=== PATIENT | male | born 1955 ===

== ENCOUNTER 2018-09-08 18:04 | Observation (INO) | payer BC ==
[2018-09-08] MEDS ORDERED: Acetaminophen TAB* 325 MG PO PRN (21:41)
[2018-09-08] MEDS ORDERED: Ondansetron INJ* 2 MG/ML VIAL IV PRN (21:41)
[2018-09-08] MEDS ORDERED: CMCS:Simvastatin TAB(NF) 10 MG TAB PO SCH (22:00)
[2018-09-08] MEDS ORDERED: Lisinopril TAB* 10 MG PO SCH (22:30)
[2018-09-08] MEDS: Heparin VIAL(*) 5000 UNITS/ML VIAL (FIVE THOUSAND) SUBCUT SCH (23:26)
--- NOTE | 2018-09-09 02:51 | HP ---
AMENDED REPORT NOW INCLUDES COSIGNER DESIGNATION CC: Dr. Golden * ADMISSION HISTORY AND PHYSICAL: DATE OF ADMISSION: 09/08/18 PRIMARY CARE PROVIDER: Dr. Golden. MY ATTENDING WHILE IN THE HOSPITAL: Dr. Eleni Crisostomo* (dictated by KAJAL Ryder). CHIEF COMPLAINT: Unilateral vision loss. HISTORY OF PRESENT ILLNESS: Mr. Green is a 63-year-old male with past medical history significant for hypertension, hyperlipidemia, sleep apnea, and history of corneal transplant, who was in his normal state of health on the morning of 09/07/18, was speaking to a someone at work and suddenly felt a little strange, stood up, felt a little dizzy, sat back down again and then states that for approximately next 5 minutes, a curtain of grayness went down and then receded over his right eye for 5 minutes. He states it happened numerous times without any discernible pattern, that never covered his whole vision and was mainly confined to the right half of his visual field. The patient denies palpitations, chest pain, shortness of breath while this occurred. The patient has not had any recent sick contacts. No recent change in his medications. The patient has not had anything like this before. The patient had his corneal transplant for corneal injury associated with inappropriate use of contact lenses. The patient has never had a syncopal episode. The patient denies palpitations. The patient has no cardiac history including atrial fibrillation. The patient at the [place] [facility] was evaluated for a TIA, had a CTA of the head and neck. CT of the brain, which showed no large vessel occlusions, no hemorrhage infarcts, and was transferred to [facility] for neurological evaluation. PAST MEDICAL HISTORY: Hyperlipidemia, sleep apnea, hypertension, and history of corneal injury. PAST SURGICAL HISTORY: Corneal transplants, spinal injections. MEDICATIONS: 1. Lisinopril 30 mg p.o. daily. 2. Simvastatin 10 mg p.o. daily. 3. Lotemax eye drops left eye 4 times a day to prevent transplant reaction. 4. Ubiquinone. 5. Vitamin D 2000 units p.o. daily. ALLERGIES: Anaphylactic reaction to SHRIMP. FAMILY HISTORY: The patient's mother had heart disease, requiring pacemaker. She also had hyperlipidemia and possible carotid artery disease. The patient's father of intraabdominal cancer. The patient has 2 brothers all of whom have hypertension and hyperlipidemia. SOCIAL HISTORY: The patient smokes a cigar a week. The patient drinks a couple of beers a week. The patient uses CBD oil and marijuana occasionally. The patient works in construction, self-employed. The patient is . The patient has 2 children. The patient's surrogate decision maker will be his , Kaur Green. REVIEW OF SYSTEMS: A 14-point review of systems was reviewed and is negative except as above in the HPI. PHYSICAL EXAMINATION GENERAL: The patient is a 63-year-old male, who appears stated age and sitting comfortably in the bed, in no acute distress. VITAL SIGNS: Temperature 98.0, pulse rate 75, respiratory rate 18, oxygen saturation 96% on room air, blood pressure 157/100. HEENT: Head: Normocephalic, atraumatic. Sclerae anicteric. No conjunctival injection. Nasal mucosa moist. Oral mucosa moist. No pharyngeal erythema, discharge, or exudate. NECK: Supple, nontender. No lymphadenopathy. No carotid bruit auscultated. No JVD. RESPIRATORY: Clear to auscultation bilaterally. No wheezes, rales, or rhonchi. Good air exchange bilaterally. CARDIAC: Regular rate and rhythm. No clicks, murmurs, gallops, or rubs. Pulses 2+ in the bilateral dorsalis pedis, posterior tibial, and radial areas. No bilateral lower extremity edema noted. ABDOMEN: Soft, nontender, nondistended. Bowel sounds are present. No hepatojugular reflux. No abdominal bruits auscultated. GENITOURINARY: No suprapubic or CVA tenderness. NEURO: Cranial nerves II through XII intact. No focal deficits. Visual montemayor intact to confrontation. No nystagmus. Strength preserved in the bilateral upper and lower extremities distally and proximally. Normal sensation. PSYCHIATRIC: Pleasant and cooperative. SKIN: Clean, dry, intact. No rash. DIAGNOSTIC STUDIES/LAB DATA: Laboratory data not available at this time. CTA of the head and neck from [place] showed no significant large artery stenosis, minimal atherosclerotic disease in the carotid arteries. CT of the brain showed no acute intracranial pathology. Chest x-ray showed no cardiopulmonary abnormality. ASSESSMENT AND PLAN: Mr. Green is a 63-year-old male with past medical history significant for hypertension, hyperlipidemia, obstructive sleep apnea, who presents to the emergency department with approximately 5 minutes of partial visual field loss. The patient had a negative CT of the head and negative CTA of the head and neck. There is concern for amaurosis fugax/ transient ischemic attack. The patient was transferred to [facility] for neurological evaluation. The patient admitted to the hospital for a completion of the workup for his transient ischemic attack. Amaurosis fugax/transient ischemic attack. The patient had visual field loss in only part of one of his eyes. The patient had CTA of his head, which showed no large artery occlusion and CT of the head showed no infarct. The patient planned to have an MRI of his head without contrast when available as well as a transthoracic echocardiogram. The patient will be monitored on telemetry. The patient will be started on aspirin. The patient received full dose of aspirin at [place]. The patient is not a tPA candidate due to lack of residual symptoms. The patient will be seen in consultation by Neurology. The patient has already been discussed by the [place] physician with Dr. Chas Kraft. Neurology consult is pending for the morning. We will defer decision whether or not to use dual- antiplatelet therapy for the neurologist. The patient will have lipid profile and hemoglobin A1c for risk stratification. Hypertension. The patient is currently borderline hypertensive. He will be continued on home dose of lisinopril at this time until tomorrow morning due to time lapse since transient ischemic attack. Hyperlipidemia. Continue simvastatin, recheck lipid profile. Obstructive sleep apnea. The patient will have CPAP while in the hospital to avoid blood pressure fluctuations. Status post corneal transplant. Continue the patient's Lotemax eye drops when available at home dose. DVT prophylaxis. The patient will have heparin subcu. The patient is a moderate risk. FEN. The patient will have a heart healthy diet without caffeine. There is no indication for fluids at this time. Code status. The patient will be a full code. The patient's surrogate decision maker will be his as above. TIME SPENT: Approximately, 60 minutes was spent on the admission of this patient, 30 of which was spent [id number] with the patient obtaining history and physical and discussing treatment plan. The plan was discussed with my attending, Dr. Eleni Crisostomo; she is in agreement. KAJAL RYDER [id number]/[facility] #: [id number] [facility]ITAL[facility]
[2018-09-09] MEDS: Heparin VIAL(*) 5000 UNITS/ML VIAL (FIVE THOUSAND) SUBCUT SCH ×2 (05:43→12:53)
[2018-09-09 07:12] LABS: ABS Basophils 0 10^3/ul (0-0.2); ABS Eosinophils 0.2 10^3/ul (0-0.6); ABS Lymphocytes 1.2 10^3/ul (1.0-4.8); ABS Monocytes 0.9 10^3/ul (0-0.8); ABS Neutrophils 3.5 10^3/ul (1.5-7.7); ABS Nucleated RBC 0 10^3/ul; Eosinophil % 2.6 % (0-6); Hematocrit 46 % (42-52); Lymphocyte % 20.2 % (25-47); Mean Corpuscular HGB Conc 35 g/dl (31-36); Mean Corpuscular Hemoglobin 34 pg (27-31); Mean Corpuscular Volume 100 fL (80-94); Mean Platelet Volume 7.5 um3 (7.4-10.4); Nucleated Red Blood Cells % 0.1; Platelet Count 208 10^3/ul (150-450); Red Blood Count 4.66 10^6/ul (4.00-5.40); Red Cell Distribution Width 14 % (10.5-15); White Blood Count 5.8 10^3/ul (3.5-10.8)
[2018-09-09 07:28] LABS: EGFR Non-African American 105.9 (>60)
[2018-09-09] MEDS ORDERED: Cholecalciferol TAB* 1000 UNITS PO SCH (09:00)
[2018-09-09] MEDS ORDERED: COENZYME Q10 200 MG PO SCH (09:00)
[2018-09-09] MEDS ORDERED: Aspirin EC TAB* 81 MG TAB.EC PO SCH (09:00)
[2018-09-09 12:08] VITALS: BP 140/77
--- NOTE | 2018-09-09 12:38 | RAD ---
Indication: Amaurosis fugax. Sagittal and axial T1, axial T2, FLAIR, diffusion stability images of the brain were obtained. Ventricular structures are midline. No midline shift is noted. The extra-axial spaces are grossly unremarkable. No restriction of diffusion is noted. The FLAIR images demonstrates tiny nonspecific signal abnormality in the left frontal deep white matter. No other areas of increased signal is noted on the FLAIR images. Susceptibility weighted images demonstrates no hemosiderin. Minimal fluid is noted in the right mastoid air cells. Minimal mucosal thickening of the left maxillary sinus is noted. IMPRESSION: Tiny nonspecific punctate area of increased signal in the left deep white matter. No restriction of diffusion is noted. No acute changes are noted.
--- NOTE | 2018-09-09 13:40 | CONS ---
CC: Dr. Golden* CONSULTATION REPORT: DATE OF ADMISSION: 09/08/18 DATE OF CONSULT: 09/09/18 PRIMARY CARE PROVIDER: Dr. Golden. REASON FOR CONSULTATION: Right-sided vision loss, transient in nature. HISTORY OF PRESENT ILLNESS: Mr. Green is a 63-year-old gentleman with a history of hypertension, hypercholesterolemia, otherwise in good health, presented to the [facility] yesterday after developing symptoms the day before. On morning, 2 days ago, he was in his usual state of health when all of a sudden, he noticed a cloud that came over his right vision, right eye. He notes that the symptoms did not involve his left eye. He did close the left eye and closed his right eye and the symptoms were confined to his right eye only. He described it as a curtain coming down. It happened several times and then resolved after a few minutes. He was with two people and there was no reported facial droop. There was no slurred speech. He denies any focal numbness, tingling, or weakness. No problem swallowing. He denied any palpitations, chest pain, shortness of breath. No recent illness, nausea, vomiting, diarrhea, or constipation. He did say when he stood up at one point he felt a little dizzy but this resolved quickly. He has no prior history of similar symptoms. The vision loss lasted total for about 5 minutes. At one point, the curtain came down about chcf states that he could see half of his fingers and then it resolved. He had no eye pain at that time. He has had no recent illnesses or fevers. He has no history of migraines and no headache at that time. His symptoms resolved, he was back in his usual state of health. He went home that night and told his who said he needed to go to the eye doctor. He went to the eye doctor the next morning who did an exam, stated that his retina looks fine but he needed to go to the ER for further evaluation , as this could be a stroke. In the [place] ER, he did have an initial workup. I did review the reports. The films are not available. CT of the brain without contrast was unremarkable. Chest x-ray showed no acute pathology. CT angiogram of the head showed no significant findings seen in the brain. There was mild atherosclerotic narrowing of less than 20% noted in the distal vertebral arteries and cavernous portions of the distal internal carotid arteries. Basilar artery was normal in appearance. The anterior cerebral artery, middle cerebral artery, and posterior arteries are all without atherosclerotic narrowing or aneurysmal dilatation. He also had a CT angiogram of the neck, which was essentially negative. Minimal atherosclerotic changes noted at the carotid bifurcations and proximal internal carotid arteries with luminal narrowing of less than 10%. He also reports having had a transthoracic echocardiogram. I do not see a report. The patient, however, reports that the echocardiogram was preliminarily negative, although I do not have confirmation of that. The patient was transferred to the [facility] for further evaluation. PAST MEDICAL HISTORY: Also includes sleep apnea and a history of corneal injury in the past. PAST SURGICAL HISTORY: Corneal transplants and spinal injections. MEDICATIONS: At home include: 1. Lisinopril 30 mg a day. 2. Simvastatin 10 mg p.o. daily. 3. Lotemax eyedrops. 4. Ubiquinone. 5. Vitamin D. ALLERGIES: To SHRIMP. FAMILY HISTORY: Significant for coronary artery disease in his mother, who also had a pacemaker; father with cancer; two brothers with hypertension and hyperlipidemia. SOCIAL HISTORY: He is a operations general agent. He states that he drinks several beers a week. He occasionally smokes a cigar. He uses CBD oil and marijuana occasionally for his low back pain. He has 3 children. PHYSICAL EXAM: Vital Signs: Temp of 97.9, pulse rate in the 60s to 70s, respiratory rate 14 to 20, pulse ox 97% to 99%, blood pressure 113/68 to 102/65 to 125/76. In general, he is a well-nourished, well-developed gentleman in no acute distress. He is pleasant, well dressed, well groomed, sitting in his chair at the bedside. His is with him. HEENT: Normocephalic, atraumatic. Sclerae are anicteric. Mucus membranes are dry. Oropharynx is clear. Nares are patent. Neck is supple. No thyromegaly. No carotid bruits. No meningismus. Chest: Clear to auscultation bilaterally. Cardiovascular: Regular rate and rhythm without murmurs. Abdomen: Nontender and nondistended. Extremities: No clubbing, cyanosis, or edema. Skin is warm and dry without lesions. On neurologic exam, he is awake, alert, and oriented x3. His speech is fluent. There is no dysarthria. Repetition is intact. Recall of recent and remote events is intact. Vocabulary is intact. His mood is euthymic. Affect, mood congruent. Cranial nerves II through XII; pupils are equal, round, and reactive to light. There is no APD appreciated. Extraocular muscles are intact. There is no nystagmus. No ptosis noted. Visual montemayor are full to confrontation and finger counting. His facial sensation is intact. His face is symmetric. His hearing is intact bilaterally. Palate raises symmetrically. Tongue is midline. Sternocleidomastoid and trapezius are 5/5. His motor exam is 5/5 throughout. Normal exam. Normal tone and bulk. No drift. Sensation is intact to light touch and pinprick throughout. No focal numbness or tingling. DTRs are 1+ and symmetric in the upper extremities, 1+ and symmetric in the lower extremities with equivocal Babinski's. [id number] rapid alternating movements are intact. No tremors are noted. He has minimal sway with eyes open and closed on Romberg testing. His gait is normal. LABORATORY DATA: Lab work includes a CBC with diff this morning with a MCV of 100, MCH of 34, lymphocyte percent of 20.2, monocyte of 15.1, absolute monocyte 0.9. His complete metabolic profile is significant for a glucose of 115, LDL cholesterol of 104. In the outside ER, he did have some blood work done. ESR was normal at 6. PT of 12.5, INR of 0.9, PTT of 27.9. His glucose was 138. Urine negative. DIAGNOSTIC STUDIES: As noted above. ASSESSMENT AND PLAN: Mr. Green is a 63-year-old gentleman with a known history of hypertension, on medication; hypercholesterolemia, on statin; history of sleep apnea, on CPAP; elevated glucose on his lab check in the ER, but no history of diabetes, presented to the hospital 2 days after an episode of a transient vision loss in the right eye only. He described it as a curtain. This is concerning for amaurosis fugax or retinal artery occlusion. The symptoms lasted about 5 minutes. Therefore, I suspect he may have had a transient ischemic attack like event. The symptoms are classic for transient ischemic attack. The vision loss per the patient was clearly in the right eye only suggesting retinal artery versus occipital lobe involvement. CT angiogram was done and showed no severe stenosis. CT of the head showed no intracranial abnormalities. Echocardiogram was reportedly done at the outside hospital, I do not have those results but the patient reports that it was normal. The patient was transferred here for further workup including an MRI of the brain. At this point, I recommend the followin. I would add Plavix to his aspirin and treat him for 30 days with Plavix and aspirin, at which point, he can stop the Plavix and resume aspirin only at 81 mg a day. 2. Follow up the echocardiogram, assuming there are no major abnormalities, then I would proceed with an outpatient event monitor to rule out underlying paroxysmal atrial fibrillation. 3. Increase his statin for goal LDL less than 70. This can be done as an outpatient and titrated up slowly. 4. Monitor and tight control of his high blood pressure as an outpatient. 5. He did have several elevated glucose levels but these were nonfasting. I would monitor for diabetes. 6. Continue to wear his CPAP for sleep apnea. 7. I told him to stop smoking cigars. 8. Return to the emergency room immediately should he have any similar or new symptoms as retinal artery occlusion is an ophthalmic emergency. 8. Schedule followup with me in 8 to 12 weeks. I will sign for now. If his echocardiogram and MRI are okay, he can go home today with close followup. Thank you for the opportunity to participate in his care. [id number]/[facility] #: [id number] ROSALIA
--- NOTE | 2018-09-09 14:05 | PN ---
Subjective Date of Service: 09/09/18 Interval History: Pt NAD and eager to go home. Pt denies any additional episodes of vision loss. Also denies chest pain, shortness of breath, palpitations, dizziness, N/V, dysuria, numbness or tingling in extremities. Objective Active Medications: Acetaminophen (Tylenol Tab*) 650 mg PO Q6H PRN PRN Reason: FEVER/PAIN Aspirin (Aspirin Ec Tab*) 81 mg PO DAILY [facility] Last Admin: 09/09/18 08:19 Dose: 81 mg Cholecalciferol (Vitamin D Tab*) 2,000 units PO DAILY [facility] Last Admin: 09/09/18 08:19 Dose: 2,000 units Coenzyme Q10 (Coenzyme Q10 (Nf)) 1 cap PO DAILY [facility] Last Admin: 09/09/18 08:17 Dose: Not Given Heparin Sodium (Porcine) (Heparin Vial(*)) 5,000 units SUBCUT Q8HR [facility] Last Admin: 09/09/18 12:53 Dose: Not Given Lisinopril (Prinivil Tab*) 30 mg PO BEDTIME [facility] Last Admin: 09/08/18 23:26 Dose: 30 mg Ondansetron HCl (Zofran Inj*) 4 mg IV Q6H PRN PRN Reason: NAUSEA Simvastatin (Zocor(Nf)) 10 mg PO BEDTIME [facility] Last Admin: 09/08/18 23:26 Dose: 10 mg Vital Signs - 8 hr 09/09/18 09/09/18 08:14 11:19 Temperature 97.9 F 98.9 F Pulse Rate 66 76 Respiratory 14 14 Rate Blood Pressure 125/76 140/77 (mmHg) O2 Sat by Pulse 97 97 Oximetry Oxygen Devices in Use Now: None Eyes: No Scleral Icterus, PERRLA Ears/Nose/Mouth/Throat: NL Teeth, Lips, Gums, Clear Oropharnyx, Mucous Membranes Moist Neck: NL Appearance and Movements; NL JVP Respiratory: Symmetrical Chest Expansion and Respiratory Effort, Clear to Auscultation Cardiovascular: NL Sounds; No Murmurs; No JVD, RRR, No Edema Abdominal: NL Sounds; No Tenderness; No Distention Extremities: No Edema, No Clubbing, Cyanosis Skin: No Rash or Ulcers, No Nodules or Sclerosis Neurological: Alert and Oriented x 3, NL Sensation, NL Muscle Strength and Tone , - - PERRLA, EOMs intact, no visual field deficits. Lines/Tubes/Other Access: Clean, Dry and Intact Peripheral IV Nutrition: Taking PO's Result Diagrams: 09/09/18 06:59 09/09/18 06:59 Assess/Plan/Problems-Billing Assessment: 63 year old male with PMH HTN, HLD, obesity, FLAKITA and history of corneal transplant presented to [place] ED after episode of transient monocular visual loss in 5 eye. Episode lasted for 5 minutes. Pt underwent initial workup for TIA at [place], then transferred to [facility] for further neuro evaluation. - Patient Problems (1) TIA (transient ischemic attack) Current Visit: Yes Status: Acute Code(s): G45.9 - TRANSIENT CEREBRAL ISCHEMIC ATTACK, UNSPECIFIED SNOMED Code(s): 351200574 Comment: - Symptoms included 5 minute episode of right eye vision loss, now resolved. No further episodes of vision loss. - Imaging included: CT without evidence of infarct, CTA without evidence of large vessel disease. MRI without acute changes. Echo was done at [place] and pt was told "normal," unable to obtain official record, but pt will obtain and bring to Dr Alas's office - Neuro following (Dr. Alas): Symptoms suggest retinal artery vs occipital lobe involvement. Recommends aspirin 81 mg indefinitely as well as plavix 75mg daily for 30 days, as well as 30 day event monitoring to r/o underlying paroxysmal afib, and titration of statin to achieve LDL < 70, which can be done as an outpatient. (2) Hypertension Current Visit: Yes Status: Acute Code(s): I10 - ESSENTIAL (PRIMARY) HYPERTENSION SNOMED Code(s): 07962585 Comment: - Well controlled with lisinopril (3) Hyperlipidemia Current Visit: Yes Status: Acute Code(s): E78.5 - HYPERLIPIDEMIA, UNSPECIFIED SNOMED Code(s): 94845945 Comment: - LDL 104 - Continue statin. Per neuro, recommend titration as outpatient to achieve LDL < 70. (4) Obesity (BMI 30.0-34.9) Current Visit: Yes Status: Acute Code(s): E66.9 - OBESITY, UNSPECIFIED SNOMED Code(s): 842658266496085 Comment: - BMI 34.4 (5) DVT prophylaxis Current Visit: Yes Status: Acute Code(s): [id number] - SNOMED Code(s): 898416995 Comment: - SQ heparin (6) Full code status Current Visit: Yes Status: Acute Code(s): Z78.9 - OTHER SPECIFIED HEALTH STATUS SNOMED Code(s): 264671795 Status and Disposition: Discharge to home. Outpatient follow up with PCP, cardiology, and neurology Attending: Rosalino García
--- NOTE | 2018-09-10 00:56 | DS ---
CC: Dr. Alas; Dr. Golden; Dr. Gottlieb* DISCHARGE SUMMARY: DATE OF ADMISSION: 09/08/18 DATE OF DISCHARGE: 09/09/18 PROVIDER: Brigitte Olivares NP ATTENDING PHYSICIAN: Dr. Gibbs * (dictated by Brigitte Olivares NP). CONSULTING PROVIDER: Dr. Alas, Neurology. PRIMARY CARE PROVIDER: Dr. Golden. PROVIDER REFERRAL: Dr. Gottlieb, Cardiology. PRIMARY DIAGNOSIS: Transient ischemic attack. SECONDARY DIAGNOSES: 1. Hypertension. 2. Hyperlipidemia. 3. Obesity. DISCHARGE MEDICATIONS: 1. Vitamin D tab 2000 units p.o. daily. 2. Active Q 200 mg p.o. daily. 3. Simvastatin 10 mg p.o. at bedtime. 4. Lisinopril 30 mg p.o. at bedtime. New medications: 1. Aspirin 81 mg p.o. daily. 2. Plavix 75 mg p.o. daily for 30 days. HOSPITAL COURSE: Mr. Green is a 63-year-old male with a past medical history of hypertension, hyperlipidemia, obesity, FLAKITA, and history of corneal transplant, who presented to the [facility] 1 day after he experienced an episode of transient monocular visual loss in his right eye that felt like "a curtain coming down." He did not experience any associated eye pain. His left eye experienced no visual change. The episode lasted for 5 minutes. At one point, when he stood up, he felt a little dizzy, but that quickly resolved. There were no other associated symptoms such as focal numbness, tingling, or weakness. The patient visited his eye doctor the next day who said his retina was fine, but that he needed further neurological evaluation and sent him to the ED. The patient underwent initial workup for TIA at [facility] where he had a CT of the brain, which was unremarkable, as well as a CTA of the head and neck with no significant findings. The patient also had an echo and was told it was "normal." He was sent to [facility] for additional neuro workup. An MRI was done here with no acute findings. The patient was seen by Dr. Alas, who felt his symptoms suggested a TIA with retinal artery versus occipital lobe involvement. He recommended aspirin 81 mg daily indefinitely as well as Plavix 75 mg daily for 30 days as well as 30-day event monitoring to rule out underlying paroxysmal AFib, for which he will be referred to Cardiology, and titration of his statin to achieve LDL less than 70 to be done as an outpatient. On exam today, the patient denies any additional symptoms or additional episodes of vision loss. Labs were unremarkable with the exception of hemoglobin A1c, which was 5.8, placing him in the prediabetes category, for which he can follow up with his primary care provider. The patient is stable for discharge home. Of note, multiple attempts were made to have the echo report sent from [facility], but they were unsuccessful and arrangements were made with the patient for him to get the report from [facility] and bring it to Dr. Alas's office on Tuesday. DISPOSITION: Stable for discharge to home. DIET: Regular diet. ACTIVITY: Activity as tolerated. FOLLOWUP: Follow up with primary care provider, Dr. Golden, in 4 to 7 days for titration of statin as well as general followup. Follow up with Cardiology in 4 to 7 days for 30-day event monitoring. Referral has been made to Dr. Gottlieb. Follow up with neurologist, Dr. Alas, in 8 to 12 weeks. TIME SPENT: Time spent for this discharge was 35 minutes. BRIGITTE OLIVARES NP [id number]/[facility] #: [id number] [place]
[2018-09-10] MEDS ORDERED: Clopidogrel TAB* 75 MG PO SCH (09:00)
== END 2018-09-09 15:40 | disposition home or self-care (01) ==
LOC: MEDTELE 19:57
PROVIDERS: ADMIT Internal Medicine; ATTEND Internal Medicine
DX: G45.9 Transient cerebral ischemic attack, unspecified (principal); E78.5 Hyperlipidemia, unspecified; E66.9 Obesity, unspecified; I10 Essential (primary) hypertension; Z79.82 Long term (current) use of aspirin; H54.61 Unqualified visual loss, right eye, normal vision left eye
CPT/HCPCS: 36415; 70551; 80048; 80061; 83036; 83735; 85025; 94660; 96374; 96376; 99406; A9270-GY; G0378; J1644